=== PATIENT | male | born 1935 | race Caucasian/White ===

== ENCOUNTER 2018-07-15 18:39 | Inpatient (IN) | payer MEDICARE, MEDICAID ==
[~2018-07-15] VITALS: Ht 182.9 cm; Wt 91.6 kg
--- NOTE | 2018-07-15 18:59 | NUR ---
PT BIB FAMILY TO ER BED 10. FAMILY ENDORSES SOB AND WHEEZING THAT STARTED YESTERDAY. ALSO LAST NIGHT THEY NOTICED PT RESTING AT A TABLE W/ BLOOD AND GOT CONCERNED THAT PT IS COUGHING OUT BLOOD. GOWNED AND PLACED ON MONITOR. AWAITING MD PETER.
--- NOTE | 2018-07-15 19:08 | NUR ---
DR FORD AT BEDSIDE FOR EVAL.
--- NOTE | 2018-07-15 19:21 | NUR ---
REPORT TO CORDELIA DODD FOR MARYSOL.
--- NOTE | 2018-07-15 19:25 | NUR ---
RT at bedside.
[2018-07-15 19:29] LABS: BASOPHILS % (AUTO) 0.9 % (0.0-2.0); EOSINOPHILS % (AUTO) 0.7 % (0.0-6.0); HEMATOCRIT 38 % (33-45); HEMOGLOBIN 11.4 g/dL (11.5-14.8); LYMPHOCYTES # (AUTO) 0.4 /CMM (0.8-4.8); LYMPHOCYTES % (AUTO) 10.7 % (20.0-44.0); MEAN CORPUSCULAR HGB CONC 30 g/dl (31.0-36.0); MEAN CORPUSCULAR VOLUME 79 fL (82-100); MONOCYTES # (AUTO) 0.4 /CMM (0.1-1.30); MONOCYTES % (AUTO) 9.2 % (2.0-12.0); NEUTROPHILS % (AUTO) 78.5 % (43.0-81.0); PLATELET COUNT (AUTO) 107 /CMM (150-450); RED BLOOD CELL COUNT(AUTO) 4.78 MIL/uL (4.0-5.2); WHITE BLOOD COUNT (AUTO) 3.8 K/uL (4.3-11.0)
[2018-07-15] MEDS ORDERED: IPRATROPIUM NEB FS 0.5 MG/2.5 ML AMPUL.NEB NEB ONE (19:30)
[2018-07-15] MEDS ORDERED: ALBUTEROL FS 2.5 MG/3 ML VIAL.NEB NEB ONE (19:30)
[2018-07-15 19:57] LABS: ALANINE AMINOTRANSFERASE 23 U/L (12-78); ALBUMIN 3.6 g/dL (3.4-5.0); ALKALINE PHOSPHATASE 103 U/L (46-116); ASPARTATE AMINOTRANSFERASE 20 U/L (15-37); B-TYPE NATRIURETIC PEPTIDE 9327 PG/ML (0-125); BILIRUBIN,DIRECT 0.1 mg/dL (0.0-0.2); BILIRUBIN,TOTAL 0.3 mg/dL (0.2-1.0); CALCIUM, SERUM 8.5 mg/dL (8.5-10.1); CARBON DIOXIDE 25 mmol/L (21-32); CHLORIDE 113 mmol/L (98-107); CREATININE 2.2 mg/dL (0.6-1.3); GLUCOSE 183 mg/dL (74-106); POTASSIUM 5.8 mmol/L (3.5-5.1); SODIUM SERUM 145 mmol/L (136-145); TOTAL PROTEIN, SERUM 6.7 g/dL (6.4-8.2)
[2018-07-15 19:58] LABS: UREA NITROGEN, BLOOD 97 mg/dL (7-18)
--- NOTE | 2018-07-15 20:15 | NUR ---
PT RESTING IN BED COMFORTABLY, NAD NOTED. RESPIRATIONS EVEN AND UNLABORED.
[2018-07-15] MEDS ORDERED: FUROSEMIDE 40 MG/4 ML VIAL ONE (20:22)
[2018-07-15] MEDS ORDERED: methylPREDNISolone SOD SUCC 125 MG/2ML VIAL ONE (20:22)
[2018-07-15] MEDS ORDERED: FUROSEMIDE 40 MG/4 ML VIAL IV ONE (20:30)
[2018-07-15] MEDS ORDERED: methylPREDNISolone SOD SUCC 125 MG/2ML VIAL IV ONE (20:30)
--- NOTE | 2018-07-15 20:54 | NUR ---
ALEK 106
[2018-07-15] MEDS ORDERED: AZITHROMYCIN 500 MG VIAL ONE (20:59)
[2018-07-15] MEDS ORDERED: AZITHROMYCIN 500 MG in IV D5W 250 ML IV ONE (21:00)
--- NOTE | 2018-07-15 21:15 | NUR ---
REPORT GIVEN TO ALEK ANTONY RN FOR MARYSOL.
[2018-07-15 22:04] VITALS: BP 116/69
--- NOTE | 2018-07-15 22:06 | NUR ---
RN NOTES temp 95.4/R; cory sierra initiated; Anjali Gan NP notified. primary JU Riley made aware
[2018-07-15] MEDS ORDERED: SITA1TAB6 PO (22:20)
[2018-07-15] MEDS ORDERED: ISOS5TAB3 PO (22:20)
[2018-07-15] MEDS ORDERED: ASPI-1169 PO (22:20)
[2018-07-15] MEDS ORDERED: CARV3.122 PO (22:20)
[2018-07-15] MEDS ORDERED: HYDR-4075 PO (22:20)
[2018-07-15] MEDS ORDERED: BUME2TAB3 PO (22:20)
[2018-07-15] MEDS: CEFTRIAXONE 2 G in IV D5W 100 ML IV SCH (23:00)
[2018-07-15] MEDS ORDERED: IPRATROPIUM NEB FS 0.5 MG/2.5 ML AMPUL.NEB NEB PRN (23:00)
--- NOTE | 2018-07-15 23:00 | NUR ---
ALEK/ADMISSION RN NOTES: ADMITTED AN 82 YRS OLD MAKE FROM ER W/ DAUGHTER IRASEMA VIA GURNEY. ALERT TO SELF. SPEAKS FRENCH. W/ LFA G 20 PATENT AND INTACT W/ NO S/S OF INFECTION/INFILTRATION NOTED. W/ TELE MONITOR W/ ST 68. W/ BLE + 2 EDEMA. L > R. NO FACIAL GRIMACE OR MOANING NOTED. W/ O2 @ 2 LPM VIA N/C SAT. 97%. CALL LIGHT W/ REACH. WILL CONTINUE TO MONITOR. INFORM ANAIS STRINGER REGARDING PT. K 5.8. W/ ORDERS NOTED AND CARRIED OUT.
[2018-07-15 23:19] LABS: IRON, SERUM 28 ug/dl (50-175); TOTAL IRON BINDING CAPACITY 374 ug/dl (250-450)
[2018-07-15] MEDS ORDERED: DEXTROSE 50%-WATER 50 ML DISP.SYRIN IV PRN (23:30)
[2018-07-16] MEDS ORDERED: CEFTRIAXONE 1 G VIAL ONE ×2 (00:11→00:12)
[2018-07-16] MEDS ORDERED: MAGNESIUM HYDROXIDE 30 ML UDC PO PRN (00:30)
[2018-07-16] MEDS ORDERED: ONDANSETRON HCL/PF 4 MG/2 ML VIAL IVP PRN (00:30)
[2018-07-16] MEDS ORDERED: Z GUARD REMEDY 2 OZ OINT TP PRN (00:30)
[2018-07-16] MEDS ORDERED: ZOLPIDEM TARTRATE 5 MG TABLET PO PRN (00:30)
[2018-07-16] MEDS ORDERED: ACETAMINOPHEN 325 MG TABLET PO PRN (00:30)
[2018-07-16] MEDS ORDERED: ACETYLCYSTEINE 20% SOLN 800 MG/4 ML VIAL ONE (00:41)
[2018-07-16] MEDS: ALBUTEROL HALF STRENGTH 1.25 MG/3 ML VIAL.NEB NEB PRN (00:43)
[2018-07-16] MEDS: IPRATROPIUM NEB FS 0.5 MG/2.5 ML AMPUL.NEB NEB SCH ×7 (00:43→23:08)
[2018-07-16] MEDS ORDERED: IV NS 0.9% 1,000 ML IV PRN (01:00)
[2018-07-16] MEDS: ALBUTEROL FS 2.5 MG/0.5 ML VIAL.NEB NEB SCH ×7 (01:00→23:07)
[2018-07-16] MEDS: ACETYLCYSTEINE 10% SOLN 400 MG/4 ML VIAL NEB SCH ×4 (01:15→23:08)
[2018-07-16] MEDS: HEPARIN SODIUM, PORCINE 5000 UNITS/1 ML VIAL SQ SCH ×3 (01:29→21:00)
[2018-07-16] MEDS ORDERED: SODIUM POLYSTYRENE SULFONATE 15 G/60 ML BOTTLE PO ONE ×2 (02:00→11:00)
[2018-07-16] MEDS ORDERED: methylPREDNISolone SOD SUCC 125 MG/2ML VIAL IV SCH (05:00)
[2018-07-16 06:34] LABS: BASOPHILS % (AUTO) 0.1 % (0.0-2.0); HEMATOCRIT 36 % (39-51); LYMPHOCYTES # (AUTO) 0.2 /CMM (0.8-4.8); LYMPHOCYTES % (AUTO) 6.2 % (20.0-44.0); MEAN CORPUSCULAR HGB CONC 31 g/dl (31.0-36.0); MEAN CORPUSCULAR VOLUME 79 fL (80-96); MONOCYTES # (AUTO) 0.1 /CMM (0.1-1.30); MONOCYTES % (AUTO) 1.8 % (2.0-12.0); NEUTROPHILS # (AUTO) 2.9 /CMM (1.8-8.9); NEUTROPHILS % (AUTO) 91.9 % (43.0-81.0); PLATELET COUNT (AUTO) 102 /CMM (150-450); RED BLOOD CELL COUNT(AUTO) 4.57 MIL/uL (4.5-6.0); WHITE BLOOD COUNT (AUTO) 3.1 K/uL (4.3-11.0)
[2018-07-16 06:42] LABS: CHOLESTEROL 97 mg/dL (<200); HDL CHOLESTEROL 34 mg/dL (40-60); LDL 52 mg/dL (0-99); TRIGLYCERIDES 85 mg/dL (30-150)
[2018-07-16 06:50] LABS: CALCIUM, SERUM 8.7 mg/dL (8.5-10.1); CARBON DIOXIDE 24 mmol/L (21-32); CHLORIDE 108 mmol/L (98-107); CREATININE 2.1 mg/dL (0.6-1.3); GLUCOSE 181 mg/dL (74-106); MAGNESIUM 2.4 mg/dL (1.8-2.4); POTASSIUM 5.6 mmol/L (3.5-5.1); SODIUM SERUM 141 mmol/L (136-145)
[2018-07-16 06:54] LABS: UREA NITROGEN, BLOOD 97 mg/dL (7-18)
--- NOTE | 2018-07-16 07:10 | NUR ---
CHIROPRACTOR SOLE PRACTITIONER OPENING NOTE RECEIVED REPORT FROM PM NURSE ALERT.PATIENT AXOX1 . SPEAKS HUNGARIAN.UNDERSTAND RWANDAN. W/ LFA G 20 IVF INFUSING, PATENT AND INTACT W/ NO S/S OF INFECTION/INFILTRATION NOTED. ON TELE MONITOR SR HR 75. W/ BLE + 2 EDEMA. L > R. ON O2 @ 2 LPM VIA N/C SAT.ON BILATERAL SOFT RESTRAINTS. CALL LIGHT W/ REACH. BED IS LOW AND IN LOCKED POSITION.SRX3.WILL CONTINUE TO MONITOR.
[2018-07-16 07:13] LABS: APPEARANCE,URINE CLEAR (CLEAR); BILIRUBIN,URINE NEGATIVE (NEGATIVE); BLOOD, URINE 1+ Ery/uL (NEGATIVE); COLOR,URINE YELLOW (YELLOW); KETONES,URINE NEGATIVE (NEGATIVE); LEUKOCYTE ESTERASE ,URINE NEGATIVE (NEGATIVE); NITRITE, URINE NEGATIVE (NEGATIVE); PH,URINE 5.5 (5.0-8.0); PROTEIN,URINE TRACE mg/dl (NEGATIVE); UGLUCOSE NEGATIVE (NEGATIVE); UROBILINOGEN,URINE 0.2 EU/dL (0.2)
--- NOTE | 2018-07-16 07:16 | NUR ---
RT PT BECAME EXTREMELY AGITATED AND WOULD CONTINUOUSLY REMOVE HHN TX. PT WOULD NOT ALLOW RT TO PLACE HHN TX BACK ON. NO SOB OR RESPIRATORY DISTRESS NOTED AT THIS TIME. Addendum: 07/16/18 at 0718 by MARY ABERNATHY RT Amended: Links added.
[2018-07-16 07:19] LABS: WBC,URINE NONE SEEN /HPF (0-3)
[2018-07-16 07:20] LABS: BACTERIA,URINE None seen /HPF (None Seen); SQUAMOUS EPITHELIAL CELL,UR Few /HPF (None Seen)
--- NOTE | 2018-07-16 07:25 | NUR ---
TELE/RN NOTES: REPORT GIVEN TO NEXT SHIFT NURSE FOR MARYSOL.
[2018-07-16 07:46] LABS: CREATININE, URINE 72.2 MG/DL (30.0-125.0); URINE TOTAL PROTEIN 26.4 mg/dL (0-11.9)
[2018-07-16] MEDS: BLOOD SUGAR DIAGNOSTIC 1 EACH STRIP IN SCH ×4 (07:58→22:04)
[2018-07-16 08:00] VITALS: BP 130/63
[2018-07-16 09:26] LABS: ABG BASE EXCESS -3.4 mmol/L; ABG OXYGEN SATURATION 89.9 % (92.0-98.5); ABG PCO2 42.5 mmHg (35.0-45.0); ABG PH 7.337 (7.350-7.450); ABG PO2 60.2 mmHg (75.0-100.0); AaDO2 38.6 mmHg; COHb 1.2 % (0.5-1.5); MetHb 0.6 % (0.0-1.5); O2Hb 88.3 % (94.0-97.0); SITE, ABG Left Brachial; VENT MODE, BG ROOM AIR
[2018-07-16] MEDS: FUROSEMIDE 100 MG/10 ML VIAL IV SCH ×3 (09:48→17:02)
[2018-07-16] MEDS: ASPIRIN 81 MG TAB.CHEW PO SCH (09:49)
[2018-07-16] MEDS: CARVEDILOL 3.125 MG TABLET PO SCH ×2 (09:49→17:03)
[2018-07-16] MEDS: hydrALAZINE HCL 10 MG TABLET PO SCH ×3 (09:49→17:02)
[2018-07-16] MEDS: ISOSORBIDE DINITRATE (5MG) 5 MG TABLET PO SCH ×3 (09:50→17:03)
--- NOTE | 2018-07-16 10:00 | NUR ---
LABORATORY SECRETARY NOTE STOCK MED NOT ADMINISTERED
[2018-07-16] MEDS: INSULIN REGULAR, HUMAN 100 UNIT/ML 3 ML VIAL SQ PRN ×4 (10:34→22:10)
[2018-07-16 12:00] VITALS: BP 127/55
--- NOTE | 2018-07-16 12:00 | NUR ---
EXTRACORPOREAL CIRCULATION SPECIALIST NOTE SEEN BY UPDATED ABOUT PATIENT CONDITION.GOT NEW ORDERS TO CHECK O2 IN ROOM AIR.O2 BACK TO 89-90%.PLACED BACK TO 2L NASAL CANULA.SEEN BY .GOT NEW ORDERS.SEEN BY MYKE VALENTINE FROM NEUROLOGY.GOT NEW ORDER FOR HEAD CT.
[2018-07-16 16:00] VITALS: BP 120/64
--- NOTE | 2018-07-16 18:28 | NUR ---
CARDROOM MANAGER CLOSING NOTE PATIENT AXOX1 . SPEAKS ICELANDIC.UNDERSTAND MAORI. W/ LFA G 20 SL, PATENT AND INTACT W/ NO S/S OF INFECTION/INFILTRATION NOTED. ON TELE MONITOR SR HR 78. W/ BLE + 2 EDEMA. L > R. ON O2 @ 3 LPM VIA N/C .ON BILATERAL SOFT RESTRAINTS. CALL LIGHT W/ REACH. BED IS LOW AND IN LOCKED POSITION.SRX3.WILL ENDORSED TO PM NURSE FOR MARYSOL.
--- NOTE | 2018-07-16 18:55 | NUR ---
CABINET ASSEMBLER NOTE LEFT MESSAGE TO MYKE VALENTINE REGARDING CT HEAD RESULT.WAITING FOR REPLY.
--- NOTE | 2018-07-16 19:22 | NUR ---
INVESTIGATIVE REPORTER NOTE LEFT MESSAGE OF CT HEAD,US RENAL,AND ECHO RESULT TO MYKE HWANG.NNO
[2018-07-16 20:00] VITALS: BP 126/66
[2018-07-16] MEDS: CEFTRIAXONE 2 G in IV D5W 100 ML IV SCH (20:38)
[2018-07-16] MEDS: HYDROCODONE/APAP 5/325MG 1 EACH TABLET PO PRN (20:59)
[2018-07-16] MEDS ORDERED: AZITHROMYCIN 500 MG in IV D5W 250 ML IV SCH (21:00)
[2018-07-16] MEDS ORDERED: INSULIN GLARGINE, 100 UNIT/ML CARTRIDGE SQ SCH (22:00)
[2018-07-17] VITALS: BP 120/61
[2018-07-17] MEDS: HYDROCODONE/APAP 5/325MG 1 EACH TABLET PO PRN (01:06)
[2018-07-17] MEDS: IPRATROPIUM NEB FS 0.5 MG/2.5 ML AMPUL.NEB NEB SCH ×6 (03:31→23:33)
[2018-07-17] MEDS: ALBUTEROL FS 2.5 MG/0.5 ML VIAL.NEB NEB SCH ×6 (03:31→23:33)
[2018-07-17 04:00] VITALS: BP 121/63
[2018-07-17 06:36] LABS: BASOPHILS % (AUTO) 0.6 % (0.0-2.0); EOSINOPHILS % (AUTO) 0.5 % (0.0-6.0); HEMATOCRIT 34 % (39-51); HEMOGLOBIN 10.4 g/dL (13.5-17.5); LYMPHOCYTES # (AUTO) 0.6 /CMM (0.8-4.8); LYMPHOCYTES % (AUTO) 13.2 % (20.0-44.0); MEAN CORPUSCULAR HGB CONC 31 g/dl (31.0-36.0); MEAN CORPUSCULAR VOLUME 77 fL (80-96); MONOCYTES # (AUTO) 0.5 /CMM (0.1-1.30); MONOCYTES % (AUTO) 10.7 % (2.0-12.0); NEUTROPHILS # (AUTO) 3.4 /CMM (1.8-8.9); PLATELET COUNT (AUTO) 112 /CMM (150-450); RED BLOOD CELL COUNT(AUTO) 4.37 MIL/uL (4.5-6.0); WHITE BLOOD COUNT (AUTO) 4.5 K/uL (4.3-11.0)
[2018-07-17 06:56] LABS: CREATINE KINASE, TOTAL 73 U/L (39-308); THYROID STIMULATING HORMONE 2.148 uIU/mL (0.358-3.74)
[2018-07-17 06:58] LABS: ALANINE AMINOTRANSFERASE 20 U/L (12-78); ALBUMIN 3.2 g/dL (3.4-5.0); ALKALINE PHOSPHATASE 83 U/L (46-116); ASPARTATE AMINOTRANSFERASE 14 U/L (15-37); BILIRUBIN,TOTAL 0.4 mg/dL (0.2-1.0); CALCIUM, SERUM 8.4 mg/dL (8.5-10.1); CARBON DIOXIDE 27 mmol/L (21-32); CHLORIDE 112 mmol/L (98-107); CREATININE 2.2 mg/dL (0.6-1.3); GLUCOSE 66 mg/dL (74-106); MAGNESIUM 2.3 mg/dL (1.8-2.4); PHOSPHORUS 5.1 mg/dL (2.5-4.9); POTASSIUM 4.1 mmol/L (3.5-5.1); SODIUM SERUM 149 mmol/L (136-145); TOTAL PROTEIN, SERUM 6.2 g/dL (6.4-8.2)
[2018-07-17 07:00] LABS: UREA NITROGEN, BLOOD 102 mg/dL (7-18)
--- NOTE | 2018-07-17 07:10 | NUR ---
WAREHOUSE LEAD OPENING NOTE RECEIVED REPORT FROM PM NURSE .PATIENT AXOX1 . SPEAKS GREENLANDIC.UNDERSTAND POLISH. W/ LFA G 20 , PATENT AND INTACT W/ NO S/S OF INFECTION/INFILTRATION NOTED. ON TELE MONITOR SR WITH BBB HR 66. W/ BLE + 2 EDEMA. L > R. ON O2 @ 2 LPM VIA N/C .ON BILATERAL SOFT RESTRAINTS. CALL LIGHT W/ REACH. BED IS LOW AND IN LOCKED POSITION.SRX3.WILL CONTINUE TO MONITOR.
[2018-07-17] MEDS: BLOOD SUGAR DIAGNOSTIC 1 EACH STRIP IN SCH ×4 (07:49→21:40)
[2018-07-17 08:00] VITALS: BP 125/64
[2018-07-17] MEDS: ACETYLCYSTEINE 10% SOLN 400 MG/4 ML VIAL NEB SCH ×3 (08:01→23:33)
[2018-07-17] MEDS ORDERED: BUMETANIDE INJ 16 MG in IV NS 0.9% 16 ML IV ONE (08:30)
[2018-07-17] MEDS: ASPIRIN 81 MG TAB.CHEW PO SCH (08:46)
[2018-07-17] MEDS: methylPREDNISolone SOD SUCC 125 MG/2ML VIAL IV SCH (08:46)
[2018-07-17] MEDS: CARVEDILOL 3.125 MG TABLET PO SCH ×2 (08:46→17:35)
[2018-07-17] MEDS: HEPARIN SODIUM, PORCINE 5000 UNITS/1 ML VIAL SQ SCH ×2 (08:47→21:44)
[2018-07-17] MEDS: hydrALAZINE HCL 10 MG TABLET PO SCH ×3 (08:47→16:32)
[2018-07-17] MEDS: ISOSORBIDE DINITRATE (5MG) 5 MG TABLET PO SCH ×3 (08:47→16:32)
--- NOTE | 2018-07-17 09:00 | NUR ---
GENERAL MANAGER LAND DEPARTMENT NOTE PATIENT REFUSED TO CHECK BLOOD GLUCOSE LEVEL PER PROTOCOL,AFTER MORNING BLOOD GLUCOSE LEVEL WAS LOW.HE ATE BREAKFAST AND DRINK ORANGE JUICE.NO S/S HYPOGLYCEMIA NOTED.
--- NOTE | 2018-07-17 11:00 | NUR ---
MS RN NOTE SEEN BY ,GOT NW ORDERS.SEEN BY MYKE HWANG UPDATED PATIENT CONDITION WITH LABS.GOT NEW ORDERS.
[2018-07-17] MEDS: INSULIN REGULAR, HUMAN 100 UNIT/ML 3 ML VIAL SQ PRN ×3 (12:52→21:41)
--- NOTE | 2018-07-17 13:00 | NUR ---
MS RN NOTE D/C RESTRAINTS.PATIENT FOLLOWS COMMANDS,NO ABNORMAL BEHAVIOR NOTED.
--- NOTE | 2018-07-17 15:00 | NUR ---
MS RN NOTE SEEN BY ,UPDATED ABOUT PATIENT CONDITION WITH LABS.ALSO NOTIFIED MILD HEMATURIA NNO.FINANCIAL ACCOUNTANT JAIDEN NOTIFIED ABOUT MILD HEMATURIA.NNO.WILL CONTINUE TO MONITOR.
[2018-07-17 16:00] VITALS: BP 122/79
--- NOTE | 2018-07-17 18:48 | NUR ---
MS RN CLOSING NOTE PATIENT AXOX1 . SPEAKS TURKISH.UNDERSTAND SLOVENIAN. FAMILY AT BEDSIDE.RW #22 , PATENT AND INTACT W/ NO S/S OF INFECTION/INFILTRATION NOTED. W/ BLE + 2 EDEMA. L > R. ON O2 @ 2 LPM VIA N/C . CALL LIGHT W/ REACH. BED IS LOW AND IN LOCKED POSITION.SRX3.WILL ENDORSE TO PM NURSE FOR MARYSOL.
[2018-07-17 20:00] VITALS: BP 133/75
[2018-07-17] MEDS: CEFTRIAXONE 2 G in IV D5W 100 ML IV SCH (21:18)
[2018-07-17] MEDS: INSULIN GLARGINE, 100 UNIT/ML CARTRIDGE SQ SCH (21:43)
[2018-07-17] MEDS: AZITHROMYCIN 250 MG TABLET PO SCH (21:45)
[2018-07-17 22:00] VITALS: BP 133/75
[2018-07-18] MEDS: IPRATROPIUM NEB FS 0.5 MG/2.5 ML AMPUL.NEB NEB SCH ×6 (03:31→22:56)
[2018-07-18] MEDS: ALBUTEROL FS 2.5 MG/0.5 ML VIAL.NEB NEB SCH ×6 (03:31→22:56)
[2018-07-18 04:00] VITALS: BP_SYST 119; BP_SYST 136; BP_DIAS 65; BP_DIAS 74
[2018-07-18 06:21] LABS: BASOPHILS % (AUTO) 0.4 % (0.0-2.0); EOSINOPHILS % (AUTO) 0.1 % (0.0-6.0); HEMATOCRIT 36 % (39-51); LYMPHOCYTES # (AUTO) 0.5 /CMM (0.8-4.8); LYMPHOCYTES % (AUTO) 10.2 % (20.0-44.0); MEAN CORPUSCULAR HGB CONC 30 g/dl (31.0-36.0); MEAN CORPUSCULAR VOLUME 77 fL (80-96); MONOCYTES # (AUTO) 0.5 /CMM (0.1-1.30); NEUTROPHILS # (AUTO) 3.7 /CMM (1.8-8.9); NEUTROPHILS % (AUTO) 79.3 % (43.0-81.0); PLATELET COUNT (AUTO) 121 /CMM (150-450); RED BLOOD CELL COUNT(AUTO) 4.69 MIL/uL (4.5-6.0); WHITE BLOOD COUNT (AUTO) 4.7 K/uL (4.3-11.0)
[2018-07-18 06:35] LABS: ALANINE AMINOTRANSFERASE 22 U/L (12-78); ALBUMIN 3.4 g/dL (3.4-5.0); ALKALINE PHOSPHATASE 88 U/L (46-116); ASPARTATE AMINOTRANSFERASE 14 U/L (15-37); BILIRUBIN,TOTAL 0.3 mg/dL (0.2-1.0); CALCIUM, SERUM 8.7 mg/dL (8.5-10.1); CARBON DIOXIDE 28 mmol/L (21-32); CHLORIDE 109 mmol/L (98-107); GLUCOSE 86 mg/dL (74-106); MAGNESIUM 2.1 mg/dL (1.8-2.4); PHOSPHORUS 5.4 mg/dL (2.5-4.9); POTASSIUM 4.3 mmol/L (3.5-5.1); SODIUM SERUM 145 mmol/L (136-145); TOTAL PROTEIN, SERUM 6.5 g/dL (6.4-8.2)
[2018-07-18 06:38] LABS: UREA NITROGEN, BLOOD 100 mg/dL (7-18)
[2018-07-18] MEDS: ACETYLCYSTEINE 10% SOLN 400 MG/4 ML VIAL NEB SCH ×3 (07:26→22:56)
[2018-07-18 08:00] VITALS: BP 129/71
[2018-07-18] MEDS ORDERED: BUMETANIDE INJ 16 MG in IV NS 0.9% 16 ML IV ONE (08:00)
[2018-07-18] MEDS: BLOOD SUGAR DIAGNOSTIC 1 EACH STRIP IN SCH ×4 (08:03→21:56)
[2018-07-18] MEDS: CARVEDILOL 3.125 MG TABLET PO SCH ×2 (08:43→19:00)
[2018-07-18] MEDS: hydrALAZINE HCL 10 MG TABLET PO SCH ×3 (09:00→18:59)
--- NOTE | 2018-07-18 09:00 | NUR ---
DR. PITT IN AND ORDERS WRITTEN.RN IN TO RM. TO HANG NEWLY ORDERED BUMEX IV.PT. HAD INADVERTENTLY PULLED OUT HEP LOCK,VERY CONFUSED.RESTARTED IN RT.WRIST WITH #22 ANGIO.PT. HITTING AND AGITATED WITH IV START.HAS AUDIBLE CONGESTION.
[2018-07-18] MEDS: HEPARIN SODIUM, PORCINE 5000 UNITS/1 ML VIAL SQ SCH ×2 (09:43→21:53)
[2018-07-18] MEDS: ASPIRIN 81 MG TAB.CHEW PO SCH (09:46)
[2018-07-18] MEDS: methylPREDNISolone SOD SUCC 125 MG/2ML VIAL IV SCH (09:46)
[2018-07-18] MEDS: ISOSORBIDE DINITRATE (5MG) 5 MG TABLET PO SCH ×3 (09:47→18:59)
[2018-07-18 12:00] VITALS: BP 134/72
[2018-07-18 13:11] LABS: PTH, INTACT 161 pg/mL (15-65)
--- NOTE | 2018-07-18 13:30 | NUR ---
DR. ALFRED MESA IN TO SEE PT. WELL BJ STRINGER.
[2018-07-18 16:00] VITALS: BP 143/84
[2018-07-18] MEDS: INSULIN REGULAR, HUMAN 100 UNIT/ML 3 ML VIAL SQ PRN ×2 (18:50→21:54)
[2018-07-18 20:00] VITALS: BP 145/69
[2018-07-18] MEDS: CEFTRIAXONE 2 G in IV D5W 100 ML IV SCH (21:51)
[2018-07-18] MEDS: AZITHROMYCIN 250 MG TABLET PO SCH (21:51)
[2018-07-18] MEDS: INSULIN GLARGINE, 100 UNIT/ML CARTRIDGE SQ SCH (21:58)
[2018-07-18 22:00] VITALS: BP 145/69
[2018-07-19] VITALS: BP 145/69
[2018-07-19] MEDS: IPRATROPIUM NEB FS 0.5 MG/2.5 ML AMPUL.NEB NEB SCH ×5 (03:14→20:26)
[2018-07-19] MEDS: ALBUTEROL FS 2.5 MG/0.5 ML VIAL.NEB NEB SCH ×5 (03:15→20:25)
[2018-07-19 04:00] VITALS: BP 136/81
--- NOTE | 2018-07-19 04:30 | NUR ---
RN INITIAL NOTE RECEIVED REPORT FROM FRANCO DODD. PATIENT AXOX1 . SPEAKS CHINESE.UNDERSTAND MOSOTHO.IV IN R WRIST #20 G. ON O2 @ 2L N/C .ON BILATERAL SOFT RESTRAINTS. CALL LIGHT W/ REACH. BED IS LOW AND IN LOCKED POSITION, SRX3.WILL CONTINUE TO MONITOR.
--- NOTE | 2018-07-19 06:42 | NUR ---
RN NOTES NO CHANGE IN PTS CONDITION OVER NIGHT.
[2018-07-19 07:13] LABS: BASOPHILS % (AUTO) 0.4 % (0.0-2.0); HEMATOCRIT 36 % (39-51); HEMOGLOBIN 11.1 g/dL (13.5-17.5); LYMPHOCYTES # (AUTO) 0.4 /CMM (0.8-4.8); LYMPHOCYTES % (AUTO) 7.5 % (20.0-44.0); MEAN CORPUSCULAR HGB CONC 31 g/dl (31.0-36.0); MEAN CORPUSCULAR VOLUME 77 fL (80-96); MONOCYTES # (AUTO) 0.4 /CMM (0.1-1.30); MONOCYTES % (AUTO) 7.6 % (2.0-12.0); NEUTROPHILS % (AUTO) 84.5 % (43.0-81.0); PLATELET COUNT (AUTO) 120 /CMM (150-450); RED BLOOD CELL COUNT(AUTO) 4.69 MIL/uL (4.5-6.0); WHITE BLOOD COUNT (AUTO) 5.9 K/uL (4.3-11.0)
[2018-07-19 07:30] LABS: ALANINE AMINOTRANSFERASE 21 U/L (12-78); ALBUMIN 3.2 g/dL (3.4-5.0); ALKALINE PHOSPHATASE 86 U/L (46-116); ASPARTATE AMINOTRANSFERASE 21 U/L (15-37); BILIRUBIN,TOTAL 0.4 mg/dL (0.2-1.0); CALCIUM, SERUM 8.6 mg/dL (8.5-10.1); CARBON DIOXIDE 29 mmol/L (21-32); CHLORIDE 107 mmol/L (98-107); CREATININE 1.8 mg/dL (0.6-1.3); GLUCOSE 60 mg/dL (74-106); POTASSIUM 4.4 mmol/L (3.5-5.1); SODIUM SERUM 144 mmol/L (136-145); TOTAL PROTEIN, SERUM 6.4 g/dL (6.4-8.2)
[2018-07-19 07:31] LABS: UREA NITROGEN, BLOOD 101 mg/dL (7-18)
[2018-07-19] MEDS: ACETYLCYSTEINE 10% SOLN 400 MG/4 ML VIAL NEB SCH ×2 (07:56→16:07)
[2018-07-19 08:00] VITALS: BP 128/67
--- NOTE | 2018-07-19 08:04 | NUR ---
PT.OFF RESTRAINT,IV SITE WRAPPED WITH KERLIX,INSTRUCTED PT. NOT TO PULL LINES,WILL MONITOR.
[2018-07-19] MEDS: BLOOD SUGAR DIAGNOSTIC 1 EACH STRIP IN SCH ×4 (08:35→21:00)
[2018-07-19] MEDS: INSULIN REGULAR, HUMAN 100 UNIT/ML 3 ML VIAL SQ PRN ×3 (08:39→21:25)
[2018-07-19] MEDS: CARVEDILOL 3.125 MG TABLET PO SCH ×2 (08:51→18:02)
[2018-07-19] MEDS: methylPREDNISolone SOD SUCC 125 MG/2ML VIAL IV SCH (09:17)
[2018-07-19] MEDS: hydrALAZINE HCL 10 MG TABLET PO SCH ×3 (09:19→18:01)
[2018-07-19] MEDS: HEPARIN SODIUM, PORCINE 5000 UNITS/1 ML VIAL SQ SCH (09:21)
[2018-07-19] MEDS: ASPIRIN 81 MG TAB.CHEW PO SCH (09:22)
[2018-07-19] MEDS ORDERED: BUMETANIDE INJ 16 MG in IV NS 0.9% 16 ML IV ONE (10:30)
[2018-07-19] MEDS: ISOSORBIDE DINITRATE (5MG) 5 MG TABLET PO SCH ×3 (10:33→18:00)
[2018-07-19 16:00] VITALS: BP 135/67
[2018-07-19 18:38] LABS: BASOPHILS % (AUTO) 0.2 % (0.0-2.0); HEMATOCRIT 37 % (39-51); HEMOGLOBIN 11.4 g/dL (13.5-17.5); LYMPHOCYTES # (AUTO) 0.2 /CMM (0.8-4.8); LYMPHOCYTES % (AUTO) 3.8 % (20.0-44.0); MEAN CORPUSCULAR HGB CONC 31 g/dl (31.0-36.0); MEAN CORPUSCULAR VOLUME 77 fL (80-96); MONOCYTES # (AUTO) 0.1 /CMM (0.1-1.30); MONOCYTES % (AUTO) 1.3 % (2.0-12.0); NEUTROPHILS # (AUTO) 5.5 /CMM (1.8-8.9); NEUTROPHILS % (AUTO) 94.7 % (43.0-81.0); PLATELET COUNT (AUTO) 126 /CMM (150-450); RED BLOOD CELL COUNT(AUTO) 4.84 MIL/uL (4.5-6.0); WHITE BLOOD COUNT (AUTO) 5.8 K/uL (4.3-11.0)
[2018-07-19 20:00] VITALS: BP 129/75
--- NOTE | 2018-07-19 20:06 | NUR ---
MS RN CLOSING NOTE PATIENT AXOX1 . SPEAKS ICELANDIC.UNDERSTAND LAO. FAMILY AT BEDSIDE. LW #22 , PATENT AND INTACT W/ NO S/S OF INFECTION/INFILTRATION NOTED. RW #20 REMOVED DURING SHIFT. W/ BLE + 2 EDEMA. L > R. ON O2 @ 2 LPM VIA N/C . CALL LIGHT W/ REACH. BED IS LOW AND IN LOCKED POSITION.SRX3.WILL ENDORSE TO PM NURSE FOR MARYSOL.
--- NOTE | 2018-07-19 20:07 | NUR ---
MS RN NOTE PATIENT PERDUE OUTPUT PRESENTING LIGHT RED. RN SPOKE TO MYKE TRIVEDI. SPORTS MEDICINE PHYSICIAN ORDERED HEPARIN STOPPED AND CBC PANEL.
[2018-07-19] MEDS: AZITHROMYCIN 250 MG TABLET PO SCH (21:00)
[2018-07-19] MEDS: CEFTRIAXONE 2 G in IV D5W 100 ML IV SCH (21:00)
[2018-07-19] MEDS: INSULIN GLARGINE, 100 UNIT/ML CARTRIDGE SQ SCH (21:24)
[2018-07-20] MEDS: IPRATROPIUM NEB FS 0.5 MG/2.5 ML AMPUL.NEB NEB SCH ×6 (00:01→19:41)
[2018-07-20] MEDS: ACETYLCYSTEINE 10% SOLN 400 MG/4 ML VIAL NEB SCH ×4 (00:01→23:30)
[2018-07-20] MEDS: ALBUTEROL FS 2.5 MG/0.5 ML VIAL.NEB NEB SCH ×6 (00:01→19:41)
[2018-07-20 04:00] VITALS: BP 117/66
[2018-07-20 06:51] LABS: CALCIUM, SERUM 8.5 mg/dL (8.5-10.1); CARBON DIOXIDE 31 mmol/L (21-32); CHLORIDE 104 mmol/L (98-107); CREATININE 1.9 mg/dL (0.6-1.3); GLUCOSE 94 mg/dL (74-106); POTASSIUM 4.8 mmol/L (3.5-5.1); SODIUM SERUM 144 mmol/L (136-145)
[2018-07-20 06:53] LABS: UREA NITROGEN, BLOOD 101 mg/dL (7-18)
[2018-07-20 08:00] VITALS: BP 114/61
[2018-07-20] MEDS: BLOOD SUGAR DIAGNOSTIC 1 EACH STRIP IN SCH ×4 (08:01→21:23)
[2018-07-20 08:09] LABS: *SPE A/G RATIO 1.3 (0.7-1.7); *SPE ALBUMIN 3.3 g/dL (2.9-4.4); *SPE ALPHA-1-GLOBULIN 0.3 g/dL (0.0-0.4); *SPE ALPHA-2-GLOBULIN 0.6 g/dL (0.4-1.0); *SPE BETA GLOBULIN 0.9 g/dL (0.7-1.3); *SPE GLOBULIN, TOTAL 2.5 g/dL (2.2-3.9); *SPE M-SPIKE Note: g/dL (Not Observed); *SPEGAMMA GLOBULIN 0.8 g/dL (0.4-1.8)
--- NOTE | 2018-07-20 08:09 | NUR ---
MS RN OPENING NOTE RECEIVED REPORT FROM PM NURSE . PATIENT AXOX2 . SPEAKS KHMER.UNDERSTAND NAURUAN. W/ LFA G 20 , PATENT AND INTACT W/ NO S/S OF INFECTION/INFILTRATION NOTED. PERDUE DRAINING YELLOW W/ SLIGHT RED. BLE + 2 EDEMA. L > R. ON O2 @ 2 LPM VIA N/C CALL LIGHT W/ REACH. BED IS LOW AND IN LOCKED POSITION.SRX3.WILL CONTINUE TO MONITOR.
[2018-07-20] MEDS: CARVEDILOL 3.125 MG TABLET PO SCH ×2 (08:28→17:24)
--- NOTE | 2018-07-20 08:31 | NUR ---
WOUND CARE CONSULT: PT REFUSED FULL SKIN ASSESSMENT BUT ALLOWED ASSESSMENT OF UPPER AND LOWER EXTREMITIES. LOWER LEGS HAVE SCARRING AND RESOLVING EDEMA, SOME DRY SKIN. RECOMMENDATIONS MADE FOR SKIN PROTECTION. DISCUSSED WITH NURSING STAFF. IRON HUNTER NOTED. WILL SEE PRN. GALLARDO IN AGREEMENT WITH PLAN OF CARE. CURRENT YUDI SCORE IS 21.
[2018-07-20] MEDS: ISOSORBIDE DINITRATE (5MG) 5 MG TABLET PO SCH ×3 (09:57→17:26)
[2018-07-20] MEDS: hydrALAZINE HCL 10 MG TABLET PO SCH ×3 (09:58→17:24)
[2018-07-20] MEDS: methylPREDNISolone SOD SUCC 125 MG/2ML VIAL IV SCH (09:58)
[2018-07-20] MEDS: ASPIRIN 81 MG TAB.CHEW PO SCH (09:58)
[2018-07-20] MEDS ORDERED: BUMETANIDE INJ 16 MG in IV NS 0.9% 16 ML IV ONE (12:00)
[2018-07-20] MEDS: INSULIN REGULAR, HUMAN 100 UNIT/ML 3 ML VIAL SQ PRN ×2 (13:03→21:24)
--- NOTE | 2018-07-20 13:44 | NUR ---
MS RN NOTE HYDRALAZINE HELD D/T LOW BP. 109/67.
[2018-07-20 16:00] VITALS: BP 114/60
--- NOTE | 2018-07-20 19:30 | NUR ---
MS RN NOTE: RECEIVED PT ON BED ALERT AND AWAKE WITH EPISODES OF CONFUSION. DAUGHTER AT BEDSIDE. NO APPARENT DISTRESS NOTED. DENIES PAIN AND DISCOMFORT AT THIS TIME. ON 2LPM NASAL CANNULA, NO SOB NOTED. PERDUE CATH INTACT AND PATENT, DRAINING WELL. IV REINSERTED ON RIGHT HAND #22 INTACT AND PATENT, FLUSHING WELL. KEPT CLEAN, DRY AND COMFORTABLE. SIDE RAILS UP X3. BED ALARM ON. BED LOCKED AND IN LOWEST POSITION. WILL CONTINUE TO MONITOR PT.
[2018-07-20 20:00] VITALS: BP 121/59
--- NOTE | 2018-07-20 20:43 | NUR ---
MS RN NOTE PATIENT PULLED OUT HIS IV AT APPROXIMATELY 1400 HOURS. MEDICATION DELAYED. MEDICATION RESUMED WHEN IV REPLACED.
--- NOTE | 2018-07-20 20:43 | NUR ---
MS RN CLOSING NOTE PATIENT AXOX1 . SPEAKS GREEK.UNDERSTAND SAMMARINESE. FAMILY AT BEDSIDE. W/ BLE + 2 EDEMA. L > R. ON O2 @ 2 LPM VIA N/C . CALL LIGHT W/ REACH. BED IS LOW AND IN LOCKED POSITION.SRX3.WILL ENDORSE TO PM NURSE FOR MARYSOL.
[2018-07-20] MEDS: CEFTRIAXONE 2 G in IV D5W 100 ML IV SCH (21:07)
[2018-07-20] MEDS: AZITHROMYCIN 250 MG TABLET PO SCH (21:20)
[2018-07-20] MEDS: INSULIN GLARGINE, 100 UNIT/ML CARTRIDGE SQ SCH (21:24)
[2018-07-21] MEDS: IPRATROPIUM NEB FS 0.5 MG/2.5 ML AMPUL.NEB NEB SCH ×7 (00:25→23:55)
[2018-07-21] MEDS: ALBUTEROL FS 2.5 MG/0.5 ML VIAL.NEB NEB SCH ×7 (00:25→23:55)
[2018-07-21] MEDS: ACETYLCYSTEINE 10% SOLN 400 MG/4 ML VIAL NEB SCH ×4 (00:31→23:55)
[2018-07-21 04:00] VITALS: BP 111/73
[2018-07-21 06:29] LABS: BASOPHILS % (AUTO) 0.3 % (0.0-2.0); EOSINOPHILS % (AUTO) 0.4 % (0.0-6.0); HEMATOCRIT 36 % (39-51); HEMOGLOBIN 11.4 g/dL (13.5-17.5); LYMPHOCYTES # (AUTO) 0.6 /CMM (0.8-4.8); LYMPHOCYTES % (AUTO) 9.8 % (20.0-44.0); MEAN CORPUSCULAR HGB CONC 31 g/dl (31.0-36.0); MEAN CORPUSCULAR VOLUME 76 fL (80-96); MONOCYTES # (AUTO) 0.7 /CMM (0.1-1.30); MONOCYTES % (AUTO) 11.7 % (2.0-12.0); NEUTROPHILS # (AUTO) 4.4 /CMM (1.8-8.9); NEUTROPHILS % (AUTO) 77.8 % (43.0-81.0); PLATELET COUNT (AUTO) 111 /CMM (150-450); RED BLOOD CELL COUNT(AUTO) 4.78 MIL/uL (4.5-6.0); WHITE BLOOD COUNT (AUTO) 5.7 K/uL (4.3-11.0)
--- NOTE | 2018-07-21 06:35 | NUR ---
MS RN NOTE: NO CHANGES NOTED THROUGHOUT THE SHIFT. NO APPARENT DISTRESS NOTED. NO COMPLAINTS OF PAIN OR DISCOMFORT AT THIS TIME. ON 2LPM NASAL CANNULA, NO SOB NOTED. PERDUE CATH INTACT AND PATENT, DRAINED 3450CC OF URINE OUTPUT. IV ON RIGHT HAND #22 INTACT AND PATENT, FLUSHING WELL. KEPT CLEAN, DRY AND COMFORTABLE. SAFETY AND FALL PRECAUTIONS OBSERVED AND MAINTAINED. WILL ENDORSE TO DAY SHIFT RN FOR CONTINUITY OF CARE.
[2018-07-21 06:57] LABS: ALANINE AMINOTRANSFERASE 35 U/L (12-78); ALBUMIN 3.3 g/dL (3.4-5.0); ALKALINE PHOSPHATASE 94 U/L (46-116); ASPARTATE AMINOTRANSFERASE 24 U/L (15-37); BILIRUBIN,TOTAL 0.4 mg/dL (0.2-1.0); CALCIUM, SERUM 8.6 mg/dL (8.5-10.1); CARBON DIOXIDE 33 mmol/L (21-32); CHLORIDE 103 mmol/L (98-107); CREATININE 1.9 mg/dL (0.6-1.3); GLUCOSE 85 mg/dL (74-106); PHOSPHORUS 4.8 mg/dL (2.5-4.9); POTASSIUM 4.2 mmol/L (3.5-5.1); SODIUM SERUM 142 mmol/L (136-145); TOTAL PROTEIN, SERUM 6.2 g/dL (6.4-8.2)
--- NOTE | 2018-07-21 07:00 | NUR ---
MS RN OPENING NOTES RECEIVED PT IN BED, A/OX1. 2LNC TOLERATING WELL. NO S/SX OF RESP DISTRESS. WHEEZING LOWER LUNG BASES. PT IS ON BL SOFT WRIST RESTRAINTS. PT PULLING OUT IV LINES. R HAND #22 IV PATENT/FLUSHED. PERDUE CATH DRAINING RED URINE. BED IN LOCKED/LOWEST POSITON. CALL LIGHT IN REACH. WILL CONT TO MONITOR.
[2018-07-21] MEDS: BLOOD SUGAR DIAGNOSTIC 1 EACH STRIP IN SCH ×4 (07:30→21:30)
[2018-07-21 07:49] LABS: UREA NITROGEN, BLOOD 107 mg/dL (7-18)
[2018-07-21 08:00] VITALS: BP 128/67
[2018-07-21] MEDS: hydrALAZINE HCL 10 MG TABLET PO SCH ×3 (09:00→17:33)
--- NOTE | 2018-07-21 09:00 | NUR ---
MS RN NOTES BS AFTER BREAKFAST 173 MG/DL. WILL CONT TO MONITOR.
--- NOTE | 2018-07-21 09:00 | NUR ---
MS RN NOTES DR FELDMAN NOTIFIED OF BLOODY URINE. MOST LIKELY R/T TRAUMA.
[2018-07-21] MEDS: CARVEDILOL 3.125 MG TABLET PO SCH ×2 (09:37→17:33)
[2018-07-21] MEDS: methylPREDNISolone SOD SUCC 125 MG/2ML VIAL IV SCH (09:38)
[2018-07-21] MEDS: ASPIRIN 81 MG TAB.CHEW PO SCH (09:38)
[2018-07-21] MEDS: ISOSORBIDE DINITRATE (5MG) 5 MG TABLET PO SCH ×3 (09:38→17:33)
[2018-07-21] MEDS ORDERED: BUMETANIDE INJ 16 MG in IV NS 0.9% 16 ML IV ONE (11:30)
[2018-07-21] MEDS: METOLAZONE 2.5 MG TABLET PO SCH (11:42)
[2018-07-21] MEDS: INSULIN REGULAR, HUMAN 100 UNIT/ML 3 ML VIAL SQ PRN ×3 (12:24→21:31)
[2018-07-21] MEDS: SOD FERRIC GLUC 125 MG in IV NS 0.9% 100 ML IV SCH (14:33)
[2018-07-21 16:00] VITALS: BP 127/61
--- NOTE | 2018-07-21 19:15 | NUR ---
MS/RN INITIAL NOTES RECEIVED PT IN BED, A/OX1, PT'S DAUGHTER AT BEDSIDE. ON 2L O2 VIA NC, TOLERATING WELL. NO SOB NOTED. RHAND G22 HEPLOCK INTACT. FC INTACT AND IN PLACED, DRAINING CLEAR, TEA COLORED URINE. PER AM RN ENDORSEMENT PT WAS NOTED WITH BLOOD IN URINE, AWARE WITH NO NEW ORDER MADE. NOTED WITH SHRAVAN SOFT WRIST RESTRAINT. SKIN INTACT, NO COMPROMISED CIRCULATION NOTED. HOB ELEVATED. SAFETY MEASURES IN PLACED. WILL CONT TO MONITOR
[2018-07-21 20:00] VITALS: BP 134/73
[2018-07-21] MEDS: AZITHROMYCIN 250 MG TABLET PO SCH (21:29)
[2018-07-21] MEDS: INSULIN GLARGINE, 100 UNIT/ML CARTRIDGE SQ SCH (21:32)
--- NOTE | 2018-07-21 23:43 | NUR ---
RN NOTES REPORT GIVEN TO JU MOTA FOR MARYSOL
--- NOTE | 2018-07-22 00:28 | NUR ---
RECIEVED ASLEEP SITTING IN SEMIFOWERS POSITION WRIST RESTRAINTS ARE OFF. 02 2 LITERS BIAS WRAP BILATER LOWER SHINS FEET WARM BED ALARM ON
--- NOTE | 2018-07-22 02:00 | NUR ---
RN NOTES RECEIVED REPORT FROM NAKUL FOR MARYSOL
[2018-07-22] MEDS: IPRATROPIUM NEB FS 0.5 MG/2.5 ML AMPUL.NEB NEB SCH ×6 (03:30→22:55)
[2018-07-22] MEDS: ALBUTEROL FS 2.5 MG/0.5 ML VIAL.NEB NEB SCH ×6 (03:30→22:55)
[2018-07-22 04:00] VITALS: BP 120/62
--- NOTE | 2018-07-22 06:53 | NUR ---
RN NOTES PT IN STABLE CONDITION. NO ACUTE CHANGES THROUGHOUT SHIFT. SAFETY MEASURES OBSERVED AT ALL TIMES. ALL NEEDS ANTICIPATED. ENDORSED TO AM SHIFT RN FOR MARYSOL
[2018-07-22] MEDS: ACETYLCYSTEINE 10% SOLN 400 MG/4 ML VIAL NEB SCH ×3 (07:21→22:55)
[2018-07-22 07:24] LABS: BASOPHILS % (AUTO) 0.2 % (0.0-2.0); EOSINOPHILS % (AUTO) 0.6 % (0.0-6.0); HEMATOCRIT 38 % (39-51); HEMOGLOBIN 11.9 g/dL (13.5-17.5); LYMPHOCYTES # (AUTO) 0.9 /CMM (0.8-4.8); LYMPHOCYTES % (AUTO) 12.3 % (20.0-44.0); MEAN CORPUSCULAR HGB CONC 31 g/dl (31.0-36.0); MEAN CORPUSCULAR VOLUME 76 fL (80-96); MONOCYTES # (AUTO) 0.8 /CMM (0.1-1.30); MONOCYTES % (AUTO) 11.8 % (2.0-12.0); NEUTROPHILS # (AUTO) 5.4 /CMM (1.8-8.9); NEUTROPHILS % (AUTO) 75.1 % (43.0-81.0); PLATELET COUNT (AUTO) 127 /CMM (150-450); RED BLOOD CELL COUNT(AUTO) 5.07 MIL/uL (4.5-6.0); WHITE BLOOD COUNT (AUTO) 7.1 K/uL (4.3-11.0)
--- NOTE | 2018-07-22 07:30 | NUR ---
RN MS NOTES PT IN BED, AWAKE, ALERT AND VERBALLY RESPONSIVE, NO COMPLAINT OF PAIN OR ANY DISCOMFORT, SKIN IS WARM TO TOUCH, CALL LIGHT WITHIN REACH, ASSISTED WITH MEALS, NEEDS ATTENDED.
[2018-07-22 07:45] LABS: ALANINE AMINOTRANSFERASE 32 U/L (12-78); ALBUMIN 3.2 g/dL (3.4-5.0); ALKALINE PHOSPHATASE 89 U/L (46-116); ASPARTATE AMINOTRANSFERASE 22 U/L (15-37); BILIRUBIN,TOTAL 0.5 mg/dL (0.2-1.0); CALCIUM, SERUM 8.8 mg/dL (8.5-10.1); CREATININE 1.7 mg/dL (0.6-1.3); PHOSPHORUS 4.6 mg/dL (2.5-4.9); TOTAL PROTEIN, SERUM 6.2 g/dL (6.4-8.2)
[2018-07-22 07:54] LABS: CARBON DIOXIDE 34 mmol/L (21-32); CHLORIDE 99 mmol/L (98-107); POTASSIUM 3.9 mmol/L (3.5-5.1); SODIUM SERUM 142 mmol/L (136-145)
[2018-07-22 07:59] LABS: GLUCOSE 41 mg/dL (74-106); UREA NITROGEN, BLOOD 99 mg/dL (7-18)
[2018-07-22 08:00] VITALS: BP 124/57
[2018-07-22] MEDS: BLOOD SUGAR DIAGNOSTIC 1 EACH STRIP IN SCH ×4 (08:19→21:26)
[2018-07-22] MEDS: METOLAZONE 2.5 MG TABLET PO SCH (08:32)
[2018-07-22] MEDS: methylPREDNISolone SOD SUCC 125 MG/2ML VIAL IV SCH (08:32)
[2018-07-22] MEDS: hydrALAZINE HCL 10 MG TABLET PO SCH ×3 (08:33→17:04)
[2018-07-22] MEDS: ASPIRIN 81 MG TAB.CHEW PO SCH (08:33)
[2018-07-22] MEDS: CARVEDILOL 3.125 MG TABLET PO SCH ×2 (08:34→17:04)
[2018-07-22] MEDS: ISOSORBIDE DINITRATE (5MG) 5 MG TABLET PO SCH ×3 (08:34→17:04)
--- NOTE | 2018-07-22 10:24 | NUR ---
RN MS NOTES PT ASLEEP, EASY TO AROUSE, SKIN WARM TO TOUCH, SEEN BY DR. FRANCIA MD INFORMED OF PT'S LOW BLOOD GLUCOSE LEVELS, WILL CONTINUE TO MONITOR.
[2018-07-22] MEDS: INSULIN REGULAR, HUMAN 100 UNIT/ML 3 ML VIAL SQ PRN ×3 (12:34→21:28)
--- NOTE | 2018-07-22 13:00 | NUR ---
RN MS NOTES PT IN BED, RESTING, ALERT AND VERBALLY RESPONSIVE, NO COMPLAINT OF PAIN, BREATHING PATTERN NORMAL, TOLERATING CURRENT DIET WELL, BS CHECKED, INSULIN GIVEN PER SLIDING SCALE ORDERED.
[2018-07-22] MEDS: SOD FERRIC GLUC 125 MG in IV NS 0.9% 100 ML IV SCH (13:50)
[2018-07-22 16:00] VITALS: BP 135/63
--- NOTE | 2018-07-22 18:40 | NUR ---
RN MS NOTES PT IN BED, AWAKE, ALERT AND ORIENTED, EATING DINNER, NOTED WITH GOOD APPETITE, NO SWALLOWING PROBLEM NOTED, PM MEDS GIVEN ORDERED, VISITED BY DAUGHTERS, PLAN OF CARE DISCUSSED WITH DAUGHTERS, VERBALIZED UNDERSTANDING, SCHEDULED MEDS GIVEN ORDERED, ALL NEEDS ATTENDED.
--- NOTE | 2018-07-22 19:30 | NUR ---
RN NOTES RECEIVED PT. AWAKE ON BED, A/OX2-3, F/C DRAINING CLEAR YELLOW URINE, NO PSIN NOTED, NO SOB, PRASANNA LIGHT WITHIN REACH, SIDERAILSUPX2, CONTINUE TO MONITOR
[2018-07-22] MEDS: INSULIN GLARGINE, 100 UNIT/ML CARTRIDGE SQ SCH (21:30)
[2018-07-23 00:31] VITALS: BP 136/71
[2018-07-23] MEDS: ALBUTEROL FS 2.5 MG/0.5 ML VIAL.NEB NEB SCH ×6 (02:57→23:37)
[2018-07-23] MEDS: IPRATROPIUM NEB FS 0.5 MG/2.5 ML AMPUL.NEB NEB SCH ×6 (02:58→23:36)
[2018-07-23 06:33] LABS: BASOPHILS % (AUTO) 0.3 % (0.0-2.0); EOSINOPHILS % (AUTO) 0.8 % (0.0-6.0); HEMATOCRIT 36 % (39-51); HEMOGLOBIN 11.4 g/dL (13.5-17.5); LYMPHOCYTES # (AUTO) 0.7 /CMM (0.8-4.8); LYMPHOCYTES % (AUTO) 12.2 % (20.0-44.0); MEAN CORPUSCULAR HGB CONC 32 g/dl (31.0-36.0); MEAN CORPUSCULAR VOLUME 76 fL (80-96); MONOCYTES # (AUTO) 0.7 /CMM (0.1-1.30); MONOCYTES % (AUTO) 12.1 % (2.0-12.0); NEUTROPHILS # (AUTO) 4.2 /CMM (1.8-8.9); NEUTROPHILS % (AUTO) 74.6 % (43.0-81.0); PLATELET COUNT (AUTO) 119 /CMM (150-450); RED BLOOD CELL COUNT(AUTO) 4.82 MIL/uL (4.5-6.0); WHITE BLOOD COUNT (AUTO) 5.7 K/uL (4.3-11.0)
--- NOTE | 2018-07-23 06:35 | NUR ---
RN NOTES SLEEPING BUT AROUSABLE, NO PAIN NOTED, NO SOB, MORNING CARE RENDERED, CALL LIGHT WITHIN REACH, SANTIAGOAILSUPX2, PT. NEEDS ATTENDED
[2018-07-23 06:43] LABS: CALCIUM, SERUM 8.5 mg/dL (8.5-10.1); CARBON DIOXIDE 37 mmol/L (21-32); CHLORIDE 99 mmol/L (98-107); CREATININE 1.6 mg/dL (0.6-1.3); GLUCOSE 79 mg/dL (74-106); SODIUM SERUM 141 mmol/L (136-145)
[2018-07-23 06:50] LABS: UREA NITROGEN, BLOOD 89 mg/dL (7-18)
--- NOTE | 2018-07-23 07:20 | NUR ---
RN OPENING NOTE RECEIVED PATIENT IN BED AWAKE AND ALERT/ORIENTED X2 ONLY. HAS A PERDUE CATHETER DRAINING YELLOW AND CLEAR URINE. HAS A BILATERAL LOWER EXT SKIN TEAR, WILL DO WOUND CARE LATER TODAY. HAS A RIGHT HAND #22 INTACT AND PATENT. NO COMPLAINS OF ANY PAIN OR ANY DISTRESS. BED ON LOWEST POSITION. CALL LIGHT WITHIN REACH. WILL CONTINUE TO MONITOR
[2018-07-23] MEDS: BLOOD SUGAR DIAGNOSTIC 1 EACH STRIP IN SCH ×4 (07:41→21:48)
[2018-07-23 08:00] VITALS: BP 120/73
[2018-07-23] MEDS: ACETYLCYSTEINE 10% SOLN 400 MG/4 ML VIAL NEB SCH ×3 (08:06→23:37)
[2018-07-23] MEDS: ASPIRIN 81 MG TAB.CHEW PO SCH (08:18)
[2018-07-23] MEDS: methylPREDNISolone SOD SUCC 125 MG/2ML VIAL IV SCH (08:18)
[2018-07-23] MEDS: METOLAZONE 2.5 MG TABLET PO SCH (08:18)
[2018-07-23] MEDS: ISOSORBIDE DINITRATE (5MG) 5 MG TABLET PO SCH ×3 (08:19→18:41)
[2018-07-23] MEDS: hydrALAZINE HCL 10 MG TABLET PO SCH ×3 (08:20→18:41)
[2018-07-23] MEDS: CARVEDILOL 3.125 MG TABLET PO SCH ×2 (08:20→18:11)
[2018-07-23] MEDS: INSULIN REGULAR, HUMAN 100 UNIT/ML 3 ML VIAL SQ PRN ×3 (12:48→21:52)
[2018-07-23] MEDS: SOD FERRIC GLUC 125 MG in IV NS 0.9% 100 ML IV SCH (14:54)
--- NOTE | 2018-07-23 15:46 | NUR ---
RN NOTE PATIENT WAS NOT GIVEN INSULIN COVERAGE IN THE AM DUE TO BLOOD SUGAR OF 79. PATIENT FINISHED HIS BREAKFAST AND LUNCH AND WAS GIVEN 4 UNITS OF INSULIN AT 1230 FOR BLOOD SUGAR OF 210. PATIENT COMPLIANT WITH ALL HIS MEDS AND DID NOT REFUSE ANY. NO SOFT RESTRAINTS SINCE THE AM. PATIENT DOING BETTER, NO RESTRAINTS NEEDED FOR NOW
[2018-07-23 16:00] VITALS: BP 124/66
--- NOTE | 2018-07-23 19:54 | NUR ---
RN CLOSING NOTE PATIENT AWAKE, FAMILY ON BEDSIDE. NO COMPLAINS OF ANY DISCOMFORT OR PAIN AT THIS TIME. VS STABLE. ALL MEDS GIVEN. REPORT GIVEN TO NOC SHIFT NURSE FOR CONT OF CARE
[2018-07-23 20:00] VITALS: BP 120/69
--- NOTE | 2018-07-23 20:00 | NUR ---
RN OPENING NOTE RECEIVED PATIENT IN BED AWAKE AND ALERT/ORIENTED X1. FAMILY AT BEDSIDE. HAS A PERDUE CATHETER DRAINING YELLOW AND CLEAR URINE. HAS A BILATERAL LOWER EXT SKIN TEAR. RIGHT HAND #22 INTACT AND PATENT S/L. NO COMPLAINS OF ANY PAIN OR ANY DISTRESS. BED IN LOWEST LOCKED POSITION. BED ALARM ON. CALL LIGHT WITHIN REACH. WILL CONTINUE TO MONITOR
[2018-07-23] MEDS: INSULIN GLARGINE, 100 UNIT/ML CARTRIDGE SQ SCH (21:48)
[2018-07-24] MEDS: IPRATROPIUM NEB FS 0.5 MG/2.5 ML AMPUL.NEB NEB SCH ×6 (03:19→22:30)
[2018-07-24] MEDS: ALBUTEROL FS 2.5 MG/0.5 ML VIAL.NEB NEB SCH ×6 (03:19→22:30)
[2018-07-24 04:00] VITALS: BP 111/63
--- NOTE | 2018-07-24 06:47 | NUR ---
RN CLOSING NOTES NO CHANGE IN PTS CONDITION OVERNIGHT. F/C DRAINING CLEAR YELLOW URINE, NO PAIN NOTED, NO SOB, CALL LIGHT WITHIN REACH, SIDERAILSUPX2, WILL ENDORSE TO AM RN.
--- NOTE | 2018-07-24 07:15 | NUR ---
RN OPENING NOTES RECEIVED REPORT FROM RECRUITING CONSULTANT RN. PT IS SLEEPING ON 2L NC. NO OBVIOUS SIGNS OF SOB OR PAIN NOTED. PERDUE BAG DRAINING TO GRAVITY WITH YELLOW URINE INSIDE THE BAG. HOB IS ELEVATED AND CALL LIGHT IS WITHIN REACH. BED IS IN LOWEST AND LOCKED POSITION. PT HAS A 22 GAUGE IN THE RIGHT HAND RUNNING TKO NS.
[2018-07-24] MEDS: ACETYLCYSTEINE 10% SOLN 400 MG/4 ML VIAL NEB SCH ×3 (07:25→22:30)
[2018-07-24] MEDS: ALBUTEROL HALF STRENGTH 1.25 MG/3 ML VIAL.NEB NEB PRN (07:25)
[2018-07-24] MEDS: BLOOD SUGAR DIAGNOSTIC 1 EACH STRIP IN SCH ×4 (07:54→22:22)
[2018-07-24 08:00] VITALS: BP 115/61
[2018-07-24] MEDS: METOLAZONE 2.5 MG TABLET PO SCH (09:14)
[2018-07-24] MEDS: ASPIRIN 81 MG TAB.CHEW PO SCH (09:14)
[2018-07-24] MEDS: methylPREDNISolone SOD SUCC 125 MG/2ML VIAL IV SCH (09:14)
[2018-07-24] MEDS: ISOSORBIDE DINITRATE (5MG) 5 MG TABLET PO SCH ×3 (09:15→17:15)
[2018-07-24] MEDS: CARVEDILOL 3.125 MG TABLET PO SCH ×2 (09:15→17:15)
[2018-07-24] MEDS: hydrALAZINE HCL 10 MG TABLET PO SCH ×3 (09:16→17:15)
[2018-07-24 09:59] LABS: ALANINE AMINOTRANSFERASE 48 U/L (12-78); ALKALINE PHOSPHATASE 96 U/L (46-116); BILIRUBIN,TOTAL 0.6 mg/dL (0.2-1.0); CALCIUM, SERUM 8.2 mg/dL (8.5-10.1); CARBON DIOXIDE 35 mmol/L (21-32); CHLORIDE 98 mmol/L (98-107); CREATININE 1.6 mg/dL (0.6-1.3); GLUCOSE 212 mg/dL (74-106); MAGNESIUM 2.1 mg/dL (1.8-2.4); PHOSPHORUS 3.9 mg/dL (2.5-4.9); POTASSIUM 3.9 mmol/L (3.5-5.1); SODIUM SERUM 137 mmol/L (136-145); TOTAL PROTEIN, SERUM 5.8 g/dL (6.4-8.2)
[2018-07-24 10:02] LABS: UREA NITROGEN, BLOOD 86 mg/dL (7-18)
[2018-07-24 10:14] LABS: ALBUMIN 2.9 g/dL (3.4-5.0); ASPARTATE AMINOTRANSFERASE 35 U/L (15-37)
[2018-07-24] MEDS: INSULIN REGULAR, HUMAN 100 UNIT/ML 3 ML VIAL SQ PRN (12:31)
[2018-07-24 16:00] VITALS: BP 111/66
--- NOTE | 2018-07-24 16:00 | NUR ---
RN MS NOTES SPOKE WITH DAUGHTER IRASEMA SHE WAS INFORMED PT WILL BE GOING TO [facility]. IRASEMA AGREED TO TRANSFER. DISCHARGED CANCELLED NOT CLEARED BY MD. DAUGHTER WAS INFORMED.
[2018-07-24] MEDS: SOD FERRIC GLUC 125 MG in IV NS 0.9% 100 ML IV SCH (16:35)
--- NOTE | 2018-07-24 19:02 | NUR ---
RN CLOSING NOTES GAVE REPORT TO SENIOR RISK MANAGER RN. PT IS SLEEPING ON 2L NC. NO OBVIOUS SIGNS OF SOB OR PAIN NOTED. PERDUE BAG DRAINING TO GRAVITY WITH YELLOW URINE INSIDE THE BAG. HOB IS ELEVATED AND CALL LIGHT IS WITHIN REACH. BED IS IN LOWEST AND LOCKED POSITION. PT HAS A 22 GAUGE IN THE RIGHT HAND RUNNING TKO NS.
[2018-07-24 20:00] VITALS: BP 125/72
--- NOTE | 2018-07-24 20:00 | NUR ---
RN MS INITIAL NOTES RECEIVED REPORT FROM AM SHIFT RN. PT IS SLEEPING ON 2L NC. NO OBVIOUS SIGNS OF SOB OR PAIN NOTED. PERDUE BAG DRAINING TO GRAVITY WITH YELLOW URINE INSIDE THE BAG. HOB IS ELEVATED AND CALL LIGHT IS WITHIN REACH. BED IS IN LOWEST AND LOCKED POSITION. PT HAS A 22 GAUGE IN THE RIGHT HAND RUNNING TKO NS.
[2018-07-24] MEDS: INSULIN GLARGINE, 100 UNIT/ML CARTRIDGE SQ SCH (22:24)
[2018-07-25] VITALS: BP 128/65
[2018-07-25] MEDS: ALBUTEROL FS 2.5 MG/0.5 ML VIAL.NEB NEB SCH ×4 (02:35→15:34)
[2018-07-25] MEDS: IPRATROPIUM NEB FS 0.5 MG/2.5 ML AMPUL.NEB NEB SCH ×4 (02:35→15:34)
[2018-07-25 06:25] LABS: BASOPHILS % (AUTO) 0.1 % (0.0-2.0); HEMATOCRIT 35 % (39-51); HEMOGLOBIN 10.9 g/dL (13.5-17.5); LYMPHOCYTES # (AUTO) 0.4 /CMM (0.8-4.8); LYMPHOCYTES % (AUTO) 7.2 % (20.0-44.0); MEAN CORPUSCULAR HGB CONC 31 g/dl (31.0-36.0); MEAN CORPUSCULAR VOLUME 76 fL (80-96); MONOCYTES # (AUTO) 0.3 /CMM (0.1-1.30); MONOCYTES % (AUTO) 5.7 % (2.0-12.0); NEUTROPHILS # (AUTO) 5.3 /CMM (1.8-8.9); PLATELET COUNT (AUTO) 130 /CMM (150-450); RED BLOOD CELL COUNT(AUTO) 4.63 MIL/uL (4.5-6.0)
[2018-07-25 06:34] LABS: CALCIUM, SERUM 8.3 mg/dL (8.5-10.1); CARBON DIOXIDE 34 mmol/L (21-32); CHLORIDE 98 mmol/L (98-107); CREATININE 1.5 mg/dL (0.6-1.3); GLUCOSE 124 mg/dL (74-106); POTASSIUM 4.3 mmol/L (3.5-5.1); SODIUM SERUM 137 mmol/L (136-145)
--- NOTE | 2018-07-25 06:40 | NUR ---
RN MS CLOSING NOTES ENDORSED REPORT TO AM SHIFT RN. PT IS SLEEPING ON 2L NC. NO OBVIOUS SIGNS OF SOB OR PAIN NOTED. PERDUE BAG DRAINING TO GRAVITY WITH YELLOW URINE INSIDE THE BAG. HOB IS ELEVATED AND CALL LIGHT IS WITHIN REACH. BED IS IN LOWEST AND LOCKED POSITION. PT HAS A 22 GAUGE IN THE RIGHT HAND RUNNING TKO NS.
[2018-07-25 06:41] LABS: UREA NITROGEN, BLOOD 92 mg/dL (7-18)
[2018-07-25] MEDS: ACETYLCYSTEINE 10% SOLN 400 MG/4 ML VIAL NEB SCH ×2 (06:57→15:34)
--- NOTE | 2018-07-25 07:15 | NUR ---
MS RN OPENING NOTES RECEIVED REPORT FROM PM RN. PT IS SLEEPING ON 2L NC. NO OBVIOUS SIGNS OF SOB OR PAIN NOTED. PERDUE BAG DRAINING TO GRAVITY WITH YELLOW URINE . HOB IS ELEVATED AND CALL LIGHT IS WITHIN REACH. BED IS IN LOWEST AND LOCKED POSITION.SRX3. PT HAS A 22 GAUGE IN THE RIGHT HAND .WILL CONTINUE TO MONITOR.
[2018-07-25] MEDS: BLOOD SUGAR DIAGNOSTIC 1 EACH STRIP IN SCH ×2 (07:46→12:02)
[2018-07-25 08:00] VITALS: BP 107/52
[2018-07-25] MEDS: methylPREDNISolone SOD SUCC 125 MG/2ML VIAL IV SCH (08:23)
[2018-07-25] MEDS: CARVEDILOL 3.125 MG TABLET PO SCH (08:24)
[2018-07-25] MEDS: METOLAZONE 2.5 MG TABLET PO SCH (08:24)
[2018-07-25] MEDS: ISOSORBIDE DINITRATE (5MG) 5 MG TABLET PO SCH ×2 (08:25→12:22)
[2018-07-25] MEDS: ASPIRIN 81 MG TAB.CHEW PO SCH (08:25)
[2018-07-25] MEDS: hydrALAZINE HCL 10 MG TABLET PO SCH ×2 (08:26→12:22)
--- NOTE | 2018-07-25 10:00 | NUR ---
MS RN NOTE SEEN BY .UPDATED PATIENT CONDITION WITH LABS.OK TO DISCHARGE.
[2018-07-25] MEDS ORDERED: METO2.5T7 PO (10:31)
--- NOTE | 2018-07-25 12:14 | NUR ---
MS RN NOTE SEEN BY ,UPDATED PATIENT CONDITION .GOT NEW ORDER TO D/C TO [facility].OK TO D/C PERDUE CATHETER.CASE MANGER MADE AWARE.
[2018-07-25 12:22] VITALS: BP 121/57
--- NOTE | 2018-07-25 12:30 | NUR ---
MS RN NOTE SEEN BY DAUGHTER CYNTHIA,SPOKE TO HER IN PERSON,ANSWERED ALL QUESTIONS REGARDING DISCHARGE.SHE SAID SHE WILL BE GOING LATER TO FACILITY TO SEE PATIENT.
[2018-07-25] MEDS: INSULIN REGULAR, HUMAN 100 UNIT/ML 3 ML VIAL SQ PRN (12:47)
[2018-07-25] MEDS: SOD FERRIC GLUC 125 MG in IV NS 0.9% 100 ML IV SCH (14:18)
--- NOTE | 2018-07-25 16:05 | NUR ---
MS DEBRANDER NOTE PATIENT D/C TO [facility] IN STABLE CONDITION. NO SOB NO DISTRESS NOTED AT THIS TIME.ON O2 2L VIA NASAL CANULA.IV REMOVED.MINIMAL BLEEDING NOTED.PRESSURE DRESSING APPLIED.GAVE ALL BELONGINGS TO EMT WITH DENTURE.REPORT GIVEN TO LUISA DODD AT FACILITY. DISCHARGE INSTRUCTIONS AND PAPER WORK GIVEN TO EMT.
== END 2018-07-25 16:21 | DRG 291 ==
LOC: EDSEX 18:40 → ER 18:40 → TELE-TD 20:59 → EDBD 20:59 → TELE1 07-16 00:44 → MEDSG1 07-17 08:36
PROVIDERS: ADMIT Nurse Practitioner Acute Care; ATTEND Family Medicine
DX: I13.0 Hypertensive heart and chronic kidney disease with heart failure and stage 1 through stage 4 chronic kidney disease, or unspecified chronic kidney disease (principal); G92 Toxic encephalopathy; J15.9 Unspecified bacterial pneumonia; J96.01 Acute respiratory failure with hypoxia; I50.23 Acute on chronic systolic (congestive) heart failure; N17.0 Acute kidney failure with tubular necrosis; E66.2 Morbid (severe) obesity with alveolar hypoventilation; D61.818 Other pancytopenia; J98.11 Atelectasis; L97.909 Non-pressure chronic ulcer of unspecified part of unspecified lower leg with unspecified severity; J44.0 Chronic obstructive pulmonary disease with (acute) lower respiratory infection; E87.5 Hyperkalemia; E11.22 Type 2 diabetes mellitus with diabetic chronic kidney disease; N18.3 Chronic kidney disease, stage 3 (moderate); E83.39 Other disorders of phosphorus metabolism; D50.9 Iron deficiency anemia, unspecified; F03.90 Unspecified dementia, unspecified severity, without behavioral disturbance, psychotic disturbance, mood disturbance, and anxiety; E11.65 Type 2 diabetes mellitus with hyperglycemia; Z68.27 Body mass index [BMI] 27.0-27.9, adult; R60.9 Edema, unspecified; I25.10 Atherosclerotic heart disease of native coronary artery without angina pectoris; F09 Unspecified mental disorder due to known physiological condition; E11.51 Type 2 diabetes mellitus with diabetic peripheral angiopathy without gangrene; E11.42 Type 2 diabetes mellitus with diabetic polyneuropathy; I87.309 Chronic venous hypertension (idiopathic) without complications of unspecified lower extremity; I87.2 Venous insufficiency (chronic) (peripheral); Z87.891 Personal history of nicotine dependence
CPT/HCPCS: 36415; 36600; 70450-TC; 71045-TC; 76770-TC; 80048-TC; 80053-TC; 80061-TC; 80076-TC; 81000-TC; 82550-TC; 82570-TC; 82803-TC; 82962-TC; 83540-TC; 83605-TC; 83735-TC; 83880; 83970; 84100-TC; 84155; 84155-TC; 84165; 84300-TC; 84443-TC; 84484-TC; 85025-TC; 87040-TC; 87081-TC; 93307-TC; 94760-TC; 94799-TC; 97110-TC; 97116-TC; 97530-TC; A4216; A4349; A6402; G0378; J0456; J0696; J1644; J1815; J1940; J2916; J2930; J3490; J7030; J7060

== ENCOUNTER 2018-08-26 13:35 | Outpatient (CLI) | payer MEDICARE, MEDICAID ==
[~2018-08-26 13:35] MED LIST: ASPI-1169 PO; BUME2TAB3 PO; CARV3.122 PO; HYDR-4075 PO; ISOS5TAB3 PO; METO2.5T7 PO; SITA1TAB6 PO
== END 2018-08-26 23:59 | disposition home health service (06) ==
LOC: WOU 13:35
PROVIDERS: ATTEND Podiatrist Foot & Ankle Surgery
DX: I87.332 Chronic venous hypertension (idiopathic) with ulcer and inflammation of left lower extremity (principal); L97.922 Non-pressure chronic ulcer of unspecified part of left lower leg with fat layer exposed; L03.116 Cellulitis of left lower limb; L90.9 Atrophic disorder of skin, unspecified
CPT/HCPCS: 82962; A6209; A6402; G0463